=== PATIENT | male | born 1960 | race Caucasian/White ===

== ENCOUNTER 2024-03-07 07:53 | Emergency (ER) | payer BC, SELFPAY ==
[2024-03-07 07:53] VITALS: BP 124/77; PULSE 77; RESP 14; TEMP 36.7; O2SAT 98; BMI 21.8
--- NOTE | 2024-03-07 08:04 | EX.ED.UPPERE ---
HPI History of Present Illness Chief Complaint: Upper Extremity Injury Informant: patient Narrative Narrative: 63-year-old diabetic male presenting to the emergency room with 2 weeks of right hand swelling. Patient states that the swelling has not gotten any better or worse. He states that this morning it was more painful to move the third finger. He denies any fevers. No change in the coloration of the skin over the past 2 weeks. No known trauma. No history of gout or other inflammatory arthropathies. States he believes he has arthritis in the shoulder but has never had it checked out. Unsure of all of his medications. He has not seen anybody for this. Because of the increased pain in the hand this morning he decided to come to emergency. [facility] Medical History (Updated 03/07/24 @ 09:[address] Hernán Vega DO) Hypercholesterolemia Diabetes Home Medications ?Medication ?Instructions ?Recorded ?Last Taken ?Type metformin 500 mg tablet 500 mg PO TID 30 days #150 tabs 11/13/18 Unknown History atorvastatin 20 mg tablet 20 mg PO DAILY 03/07/24 Unknown History dapagliflozin propanediol 5 mg 5 mg PO DAILY 03/07/24 Unknown History tablet (Farxiga) glipizide 10 mg tablet, extended 20 mg PO DAILY 03/07/24 Unknown History release 24 hr naproxen 500 mg tablet 500 mg PO BID #14 tabs 03/07/24 Unknown Rx prednisone 20 mg tablet 60 mg (3 x 20 mg) PO DAILY #15 03/07/24 Unknown Rx TABLETS Allergy/AdvReac Type Severity Reaction Status Date / Time No Known Allergies Allergy Verified 03/07/24 07:59 Social History Smoking Status: Never smoker alcohol intake: never ROS ROS ED Constitutional Constitutional ED: Denies chills, fever(s) or weight loss Eyes Eyes: Denies change in vision or diplopia ENT ENT ED: Denies ear pain, rhinorrhea or sore throat Cardiovascular Cardiovascular: Denies chest pain, orthopnea, palpitations or racing heartbeat Respiratory/Chest Respiratory/Chest: Denies cough, dyspnea or orthopnea Gastrointestinal Gastrointestinal: Denies abdominal pain, diarrhea, nausea or vomiting Genitourinary Genitourinary ED: Denies dysuria, hematuria or urinary frequency Musculoskeletal Musculoskeletal: Reports other Details: Right hand pain and swelling ; Denies arthralgias or myalgias Integumentary Denies abscess or rash Neurologic Neurologic: Reports paresthesias RUE (Reports tingling but no loss of sensation of the right long finger); Denies headache(s) or weakness Psychiatric Psychiatric: Denies anxiety, depression, suicidal ideation or suicidal thoughts Endocrine Endocrinology: Denies polydipsia, polyphagia or polyuria Allergic/Immunologic Allergic/Immunologic ED: Denies mouth swelling, tongue swelling or urticaria EXAM Physical Exam Const Vital Signs: 03/07/24 07:53 Temperature 98.1 F Temperature Source Temporal Pulse Rate 77 Respiratory Rate 14 Blood Pressure 124/77 H Blood Pressure Mean 92 Pulse Ox 98 Oxygen Delivery Method Room Air Positive well nourished and well developed General Appearance ED: well developed HEENT Reports normocephalic, head/scalp atraumatic and moist mucous membranes Eyes PERRL and EOMs intact bilaterally Neck full ROM, no lymphadenopathy, supple and no JVD Resp normal respiratory effort and clear to auscultation bilaterally Cardio regular rate, regular rhythm and no murmurs GI normal to inspection, nondistended, normoactive bowel sounds and non-tender Palpation: soft Back/Spine no CVA tenderness and normal ROM Extremity Extremity Narrative: Dorsum of the right hand demonstrates swelling over the dorsal surface at the long finger MCP joint. This extends slightly over onto the fourth MCP joint. There is loss of the normal contour of the MCP joint. Neurovascularly he is intact with excellent capillary refill. There is no swelling of the digit. There is no significant redness or increased warmth. He notes pain with movement of the long finger particularly flexion. No lymphangitic changes. There is no tenderness or swelling from the carpal bones proximal. I do not appreciate significant breaks in the skin. General Extremety ED: Negative for edema General Extremity: Negative for edema Neuro oriented x3 and CN's II-XII intact bilaterally Sensorium / Orientation: alert Motor Exam: strength 5/5 throughout Psych mental status grossly normal Mood & Affect: Negative for depressed or tearful Skin no rashes or lesions noted and no wounds MDM MDM MDM Narrative Medical decision making narrative: Differential diagnosis includes but not limited to gouty arthritis, other inflammatory arthropathy cellulitis, tendinitis, tenosynovitis. My independent interpretation of the plain films of the right hand is osteoarthritic changes with basically [id number] articulation at the third MCP joint. No obvious foreign bodies noted. No subcutaneous air noted. BMP showed hyperglycemia. Uric acid was within normal limits. Clinically I think this most likely represents osteoarthritis changes. I can place him on a short course of prednisone but recommend some anti-inflammatories. He was advised this may recur. This point I am not seeing evidence of infection or gout. Patient to follow-up as needed. Radiography Diagnostic Testing: Clinical Impression(s) from Imaging Studies Hand X-Ray 03/07/24 08:16 IMPRESSION: Degenerative changes at the third metacarpophalangeal joint. Soft tissue swelling. 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 Instructions: ED Osteoarthritis Prescriptions: New prednisone 20 mg tablet 60 mg PO DAILY Qty: 15 0RF naproxen 500 mg tablet 500 mg PO BID Qty: 14 0RF No Action metformin 500 mg tablet 500 mg PO TID 30 Days Qty: 150 Patient Comments: Take 2 tablets with breakfast, 1 at lunch, and 2 at suppertime atorvastatin 20 mg tablet 20 mg PO DAILY glipizide 10 mg tablet extended release 24hr 20 mg PO DAILY dapagliflozin propanediol [Farxiga] 5 mg tablet 5 mg PO DAILY Primary Care Provider: Wolf Hyatt Referrals: Wolf Hyatt MD [Primary Care Provider] - 1 Week if not improving Print Language: Welsh Disposition Disposition: Home, Self Care Discharge Date/Time: 03/07/24 09:42
--- NOTE | 2024-03-07 08:16 | RAD_ITS ---
STUDY: X-RAY - RIGHT HAND REASON FOR EXAM: Male, 63 years old. 2 week history of the swelling. No known injury. TECHNIQUE: 3 view(s) of the hand. COMPARISON: None. FINDINGS: Normal radiocarpal articulation. Normal distal radioulnar joint. Normal visualized carpal bones. Normal carpal articulations Normal carpometacarpal articulation of the thumb. Normal second through fifth carpometacarpal joints. Normal metacarpi. Normal metacarpophalangeal joint of the thumb. Normal interphalangeal joint of the thumb. Normal proximal and distal phalanges of the thumb. Marked degree of degenerative changes with spur formation at the third metacarpal phalangeal joint. Normal proximal and distal interphalangeal joints of the second through fifth fingers. Normal phalanges of the second through fifth fingers. Soft tissue swelling. RAD/Hand Min 3 Views IMPRESSION: Degenerative changes at the third metacarpophalangeal joint. Soft tissue swelling. Electronically Signed: Jesus Ontiveros MD at 8:32 EDT ,
[2024-03-07 08:37] LABS: Anion Gap 8 (5-15); BUN 30 mg/dL (7-18); BUN/Creat Ratio 28.3 RATIO (10-20); Calcium,Total 9.7 mg/dL (8.5-10.1); Chloride 107 mmol/L (98-107); Creatinine, Serum 1.06 mg/dL (0.70-1.30); EST Glomerular Filtration Rate 75 mL/min (>60); Est Glom Filt Rate - Afr Amer 91 mL/min (>60); Estimated Creatinine Clearance 74.71 ml/min; Glucose 276 mg/dL (74-106); Potassium 4.1 mmol/L (3.5-5.1); Sodium Level 137 mmol/L (136-145); Uric Acid 3.8 mg/dL (3.5-7.2)
[2024-03-07 09:36] VITALS: BP 120/70; PULSE 72; RESP 16; TEMP 36.6; O2SAT 98
== END 2024-03-07 09:42 | disposition home or self-care (01) ==
PROVIDERS: Emergency Provider Emergency Medicine; PCP Family Medicine; Visit Provider Emergency Medicine
DX: M79.641 Pain in right hand (principal); E11.9 Type 2 diabetes mellitus without complications; M79.89 Other specified soft tissue disorders; M19.041 Primary osteoarthritis, right hand; E78.00 Pure hypercholesterolemia, unspecified; Z79.899 Other long term (current) drug therapy; Z79.84 Long term (current) use of oral hypoglycemic drugs
CPT/HCPCS: 73130; 80048; 84550; 99282